=== PATIENT | male | born 1975 ===

== ENCOUNTER → 2018-04-28 | Day surgery (SDC) | payer OTHER ==
[~2018-04-28] MED LIST: ADVIL100 M1 PO; ALLEGRA ALLERGY60 MG PO; MIRALAX17 GM PO; NEURONTIN300 MG PO; ULTRACET PO; ZOFRAN ODT4 MG PO
== END | disposition home or self-care (01) ==
LOC: ADM 04-20 10:00 → CIR.AMB 07:00
DX: K40.90 Unilateral inguinal hernia, without obstruction or gangrene, not specified as recurrent (principal); K42.9 Umbilical hernia without obstruction or gangrene

== ENCOUNTER 2018-09-30 07:30 | Day surgery (SDC) | payer OTHER | END 2018-09-30 12:15 | disposition home or self-care (01) | LOC: AMB-ENDOS 07:30 | DX: K57.30 Diverticulosis of large intestine without perforation or abscess without bleeding (principal); K64.1 Second degree hemorrhoids ==